=== PATIENT | male | born 1990 | race American Indian/Alaskan Native ===

== ENCOUNTER → 2018-12-04 | Emergency (ER) | payer SELFPAY ==
[~2018-12-04] MED LIST: ROCEPHIN IM ONE; XYLOCAINE 1% MPF 5 mL INFILTRATI ONE; XYLOCAINE 1% MPF 5 mL ONE; ZITHROMAX PO ONE
[2018-12-04 06:22] VITALS: BP 124/78
--- NOTE | 2018-12-04 07:42 | Emergency Department Report ---
ED Male HPI - General Chief complaint: Urogenital-Male Stated complaint: STD Time Seen by Provider: 12/04/18 06:54 Source: patient Mode of arrival: Ambulatory Limitations: No Limitations - History of Present Illness Initial comments: Pt is a 28 yo male who presents to the ED with c/o white penile discharge for two weeks. The patient also has dysuria. The patient is sexually active with 1 partner and did not use protection. The patient denies any fever, testicular pain, testicular edema, penile pain, blisters, or lesions. He states he was treated previously for chlamydia in 2014. - Related Data Previous Rx's Medication Instructions Recorded Last Taken Type Ciprofloxacin [Ciprofloxacin ORAL 500 mg PO BID 7 Days #14 ml 12/04/18 Unknown Rx LIQ] Allergies Allergy/AdvReac Type Severity Reaction Status Date / Time No Known Allergies Allergy Verified 12/04/18 07:26 ED Review of Systems ROS: Stated complaint: STD Other details as noted in HPI Comment: All other systems reviewed and negative ED Past Medical Hx - Past Medical History Previous Medical History?: No - Surgical History Past Surgical History?: No - Social History Smoking Status: Current Every Day Smoker Substance Use Type: Alcohol - Medications Home Medications: Home Medications Medication Instructions Recorded Confirmed Last Taken Type Ciprofloxacin [Ciprofloxacin ORAL 500 mg PO BID 7 Days #14 ml 12/04/18 Unknown Rx LIQ] ED Physical Exam - General Limitations: No Limitations - Head Head exam: Present: atraumatic, normocephalic - Eye Eye exam: Present: normal appearance - ENT ENT exam: Present: mucous membranes moist - Respiratory Respiratory exam: Present: normal lung sounds bilaterally. Absent: respiratory distress, wheezes, rales, rhonchi, stridor, chest wall tenderness, accessory muscle use, decreased breath sounds, prolonged expiratory - Cardiovascular Cardiovascular Exam: Present: regular rate, normal rhythm, normal heart sounds. Absent: systolic murmur, rubs, gallop - GI/Abdominal GI/Abdominal exam: Present: soft. Absent: distended, tenderness, guarding, rebound, rigid - exam: Present: normal inspection, other (RN alyx present during examination and GC swab, no obvious discharge present at the urethra, no lesions, no blistering, no crusting, no erythema). Absent: testicular tenderness, urethral discharge, scrotal swelling ED Course Vital Signs 12/04/18 06:20 Temperature 97.8 F Pulse Rate 64 Respiratory 18 Rate Blood Pressure 124/78 O2 Sat by Pulse 100 Oximetry ED Medical Decision Making - Medical Decision Making Pt is a 28 yo male who presents for white penile discharge for two weeks. He also has dysuria. Examination with RN presents with no discharge present at urethral opening, no blisters, lesions, or crusting present. Pt swabbed for GC, he was swabbed prior to giving a urine sample for UA. Will tx in ED with ceftriaxone and azithromycin. Discussed to not engage in sexual intercourse for 7-10 days and to have partner tested and treated. Advised pt to follow up with the health department or PCP if concern for other STDs including syphilis and HIV. UA performed and shows WBCs in the urine. Pt eloped from the emergency department after receiving tx for STDs. Pt eloped prior to receiving urine results. Pt left prior to receiving discharge packet. Pt would need to be treated for UTI with ciprofloxacin but eloped prior to receiving those results. RN states that pt said he was going to work and left from the emergency department. - Differential Diagnosis STD, UTI, Penile discharge Critical care attestation.: If time is entered above; I have spent that time in minutes in the direct care of this critically ill patient, excluding procedure time. ED Disposition Clinical Impression: Screen for STD (sexually transmitted disease) UTI (urinary tract infection) Qualifiers: Urinary tract infection type: site unspecified Hematuria presence: without hematuria Qualified Code(s): N39.0 - Urinary tract infection, site not specified Disposition: ELOPED Is pt being admited?: No Does the pt Need Aspirin: No Condition: Stable Instructions: Safe Sex (ED), Sexually Transmitted Diseases (ED), Urinary Tract Infection in Men (ED) Additional Instructions: Follow up with your primary care doctor in the next 2-3 days. Do not engage in sexually intercourse for 7-10 days. Your partner will need to be tested and treated. If concerned about other STDs including syphilis and HIV, will need to receive testing at the health department or at your primary care doctor. Prescriptions: Ciprofloxacin [Ciprofloxacin ORAL LIQ] 500 mg PO BID 7 Days #14 ml Referrals: JES DIAL MD [Primary Care Provider] - 2-3 Days Time of Disposition: 08:24 Print Language: LATVIAN
[2018-12-04 08:12] LABS: Bilirubin,Urine NEG (Negative); Blood,Urine NEG (Negative); Color,Urine Yellow (Yellow); Mucus,Urine FEW /HPF; Protein,Urine <15 mg/dL mg/dL (Negative)
== END | disposition left against medical advice (07) ==
LOC: ED 06:17
DX: N39.0 Urinary tract infection, site not specified (principal); F17.200 Nicotine dependence, unspecified, uncomplicated
CPT/HCPCS: 81001; 87116; J0696; 96372; 99283